=== PATIENT | male | born 1955 | race Caucasian/White ===

== ENCOUNTER 2017-08-31 09:38 | Emergency (ER) | payer OTHER ==
[2017-08-31 09:43] VITALS: TEMP 97.5
[2017-08-31] MEDS ORDERED: NS 1,000 ML IV ONE (09:47)
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
[2017-08-31] MEDS ORDERED: ACETAMINOPHEN 500 MG TAB PO ONE (09:52)
[2017-08-31] MEDS ORDERED: KETOROLAC 15 MG/1 ML SDV IVP ONE ×2 (09:52→10:26)
[2017-08-31 09:56] LABS: COLOR YELLOW; LEUKOCYTE ESTERASE,URINE NEGATIVE (NEGATIVE); NITRITE,URINE NEGATIVE (NEGATIVE)
[2017-08-31 10:04] LABS: MUCUS TRACE /lpf (NONE-1+); RBC,URINE 50-182 /hpf (0-3)
[2017-08-31 10:09] LABS: % IMMATURE GRANULYOCYTES 0.2 % (0.0-1.1); ABSOLUTE IMMATURE GRANULOCYTES 0.01 10^3/uL (0.00-0.10); ADD DIFF? NO; ADD MORPH? NO; ADD SCAN? NO; ATYPICAL LYMPHOCYTE FLAG 0 (0-99); FRAGMENT RBC FLAG 0 (0-99); HEMATOCRIT 48.8 % (40.0-51.0); HEMOGLOBIN 16.6 g/dL (13.7-17.5); LEFT SHIFT FLG 0 (0-99); LIPEMIA HEMOLYSIS FLAG 90 (0-99); MEAN CELL HEMOGLOBIN 32.1 pg (27.9-34.1); MEAN CELL VOLUME 94.4 fL (81.5-99.8); MEAN PLATELET VOLUME 10.2 fL (8.7-11.7); PLATELET CLUMPS FLAG 0 (0-99); PLATELET COUNT 270 10^3/uL (150-400); RED BLOOD CELL COUNT 5.17 10^6/uL (4.40-6.38); RED CELL DISTRIBUTION WIDTH 12.6 % (11.5-15.2)
[2017-08-31] MEDS ORDERED: TAMSULOSIN HCL 0.4 MG CAP PO ONE (10:33)
[2017-08-31 10:38] LABS: CALCIUM 9.5 mg/dL (8.5-10.4); CARBON DIOXIDE 26 mEq/l (22-31); CHLORIDE 101 mEq/L (97-110); CREATININE 0.9 mg/dL (0.7-1.3); GLOMERULAR FILTRATION RATE > 60; GLUCOSE 93 mg/dL (70-100); SODIUM 140 mEq/L (134-144)
[2017-08-31 10:44] LABS: ANION GAP 13 mEq/L (8-16); POTASSIUM 4.1 mEq/L (3.5-5.2)
[2017-08-31] MEDS ORDERED: LIDOCAINE 1% 200 MG in NS 100 ML IV ONE (10:59)
[2017-08-31] MEDS ORDERED: fentaNYL 100 MCG/2 ML INJ IVP ONE (10:59)
[2017-08-31 11:48] VITALS: BP 111/78; PULSE 62; RESP 15; O2SAT 92
== END 2017-08-31 11:48 | disposition home or self-care (01) ==
DX: N23 Unspecified renal colic (principal); E86.9 Volume depletion, unspecified
CPT/HCPCS: 96374; J1885; J3010